=== PATIENT | female | born 1985 | race Caucasian/White ===

== ENCOUNTER 2018-07-23 10:15 | Outpatient (REF) | payer MEDICAID, SELFPAY ==
[2018-07-23 13:12] LABS: ALT 27 U/L (12-78); AST 10 U/L (15-37); Albumin 4.7 g/dL (3.4-5.0); Alkaline Phosphatase 63 U/L (46-116); Anion Gap 11.3 mmol/L (3-11); BUN 19 mg/dL (7-18); Bilirubin, Total 1.9 mg/dL (0.2-1.0); CO2 25.7 mmol/L (21.0-32.0); CREATININE 0.74 mg/dL (0.55-1.02); Calcium 9.4 mg/dL (8.5-10.1); Chloride 102 mmol/L (98-107); Glucose 78 mg/dL (70-100); Potassium 4.1 mmol/L (3.5-5.1); Sodium 139 mmol/L (136-145); TSH (W/Ref FT4) 1.25 uIU/mL (0.358-3.74)
== END 2018-07-23 10:35 ==
LOC: NCHCN 10:15
PROVIDERS: PCP Nurse Practitioner Family; Visit Provider Family Medicine
DX: F31.9 Bipolar disorder, unspecified (principal); B36.0 Pityriasis versicolor
CPT/HCPCS: 80053; 84443

== ENCOUNTER 2018-08-19 12:09 | Outpatient (REF) | payer MEDICAID, SELFPAY ==
[2018-08-19 12:31] LABS: Lithium 0.38 mmol/L (0.60-1.20)
== END 2018-08-19 12:29 ==
LOC: NCHCN 12:09
PROVIDERS: PCP Nurse Practitioner Family; Visit Provider Family Medicine
DX: F31.9 Bipolar disorder, unspecified (principal); Z51.81 Encounter for therapeutic drug level monitoring; Z79.899 Other long term (current) drug therapy
CPT/HCPCS: 80178

== ENCOUNTER 2018-10-01 15:18 | Emergency (ER) | payer MEDICAID, SELFPAY ==
[2018-10-01 15:31] VITALS: BP 114/78; PULSE 94; RESP 18; TEMP 36.6; O2SAT 98
--- NOTE | 2018-10-01 15:49 | ED.GENADUL_ITS ---
Discharge Plan Disposition Patient Disposition: HOME Condition: Stable Discharge Details Chief Complaint: AnimalBite Clinical Impression: Cat bite of forearm, Cat bite of hand Reason For Visit: cat bites Primary Care Provider: Cyndi Day ED Provider: Lorie Moore Home Meds and New Rx's Prescriptions: New amoxicillin-pot clavulanate [Augmentin] 875-125 mg tablet 1 tab PO BID 10 Days Qty: 20 RF: 0 Continue levonorgestrel [Mirena] 1 EACH intrauterine device 1 ea Intrauterine DAILY RF: 0 lithium carbonate 150 mg Capsule 100 mg PO TID RF: 0 Discharge Instructions Instructions: Animal Bite (ED) Additional Instructions: Take the antibiotics until finished. Alternate Tylenol and Motrin as needed and directed for pain. Keep your wounds clean dry and intact. Follow-up with your primary care doctor in 1 week for reevaluation. Return immediately to the emergency department with any worsening or new concerning symptoms. Stand Alone Forms: Work Release Discharge Data Discharge Physician: Lorie Moore Medical Decision Making 33yo F who presents with multiple cat bites and scratches to left forearm and hand. States cat up to date on shots. She returns last tetanus 2007. There are multiple superficial puncture wounds and lacerations to left forearm and hand. No palmar lacerations or puncture wounds noted. Neurovascularly intact. No signs of acute infection. Wounds irrigated well and dressed by nurse. We will give her a Boostrix, Tylenol, ibuprofen, check a urine and a left hand and forearm x-ray to rule out fracture versus foreign body. Pt refused test. States she is on mirena. 1645 -- xrays negative. Patient given dose of Augmentin here. Bite reported to health officer. Pt was instructed to make sure cat up to date on shots/rabies vaccine. Patient instructed on the importance of good wound care due to the high risk of infected cat bites. Prescription for Augmentin given. Patient was instructed to follow-up with a primary care doctor and to return here with any worsening symptoms of fever or red streaking. HPI General Mode of arrival: ambulatory . Date/Time Provider Initiated Documentation: 10/01/18 15:32 . Limitations to Documentation: no limitations . Information obtained by: patient . HPI Narrative: Patient is a 33-year-old female who presents with multiple cat bite and scratches to left forearm and hand sustained from her boyfriend's cat today. Patient is unsure of her tetanus status. Related Data Home Medications Medication Instructions Recorded Confirmed levonorgestrel [Mirena] 1 ea INTRAUTERINE DAILY 05/06/15 10/01/18 amoxicillin-pot clavulanate 1 tab PO BID 10 Days #20 tab 10/01/18 [Augmentin] lithium carbonate 100 mg PO TID 10/01/18 10/01/18 Previous Rx's Medication Instructions Recorded amoxicillin-pot clavulanate 1 tab PO BID 10 Days #20 tab 10/01/18 [Augmentin] Allergies Allergy/AdvReac Type Severity Reaction Status Date / Time selenium sulfide Allergy RASH Unverified 04/17/18 09:59 zolpidem [From Ambien] Allergy Unverified 10/01/18 15:35 General Stated Complaint: AnimalBite RAVEN: 3 Review of Systems Review of Systems All systems reviewed & are unremarkable except as noted in HPI and below Constitutional Reports as per HPI, Denies chills and Denies fever(s) Eyes Denies blurry vision ENT Denies dizziness, Denies sore throat and Denies throat swelling Cardiovascular Denies chest pain and Denies dyspnea Respiratory Denies dyspnea Gastrointestinal Denies abdominal pain, Denies diarrhea and Denies vomiting Genitourinary Denies hematuria and Denies dysuria Musculoskeletal Denies back pain and Denies numbness Integumentary/Breasts Denies lesions and Denies rash Neurologic Denies dizziness and Denies numbness Allergic/Immunologic Denies throat swelling PFSH Bipolar disorder Contraception (04/17/18) Cholecystectomy Medical History Bipolar disorder Contraception (04/17/18) Social History Smoking/Tobacco Use Status: Never Surgical History Cholecystectomy Social History Smoking/Tobacco Use Status: Never Exam Const General: cooperative, healthy appearing and no acute distress HENMT Head: normal to inspection Mouth: oral mucosae normal Eyes General: appearance normal, both eyes and all related structures Neck Neck: normal visual inspection Resp Effort & Inspection: normal respiratory effort and able to speak in complete sentences Cardio Rate: regular rate Skin General skin exam: no rashes or lesions noted Neuro General: alert, awake and oriented x3 Motor: muscle tone normal throughout Extrem General: normal to inspection and full ROM Other: Multiple puncture wounds and superficial linear lacerations noted to left dorsal and volar forearm as well as dorsal hand. No palmar lacerations noted. There is tenderness to palpation with very mild edema around wounds but no obvious erythema, induration, fluctuance or red streaking. Cap refill less than 2 seconds. Distal upper extremity pulses intact. Psych Appearance: grossly normal Affect: normal affect Course Vital Signs Temperature 97.9 F 10/01/18 15:31 Pulse 94 H 10/01/18 15:31 Respiratory Rate 18 10/01/18 15:31 Blood Pressure 114/78 10/01/18 15:31 Pulse Oximetry 98 10/01/18 15:31 Temperature 97.9 F 10/01/18 15:31 Temperature Source Temporal Artery Scan 10/01/18 15:31 Pulse 94 H 10/01/18 15:31 Respiratory Rate 18 10/01/18 15:31 Respiratory Effort 10/01/18 15:35 Blood Pressure 114/78 10/01/18 15:31 Pulse Oximetry 98 10/01/18 15:31 Oxygen Delivery Method Room Air 10/01/18 15:31 Oxygen Flow Rate 0 10/01/18 15:31
--- NOTE | 2018-10-01 15:56 | DI.RAD_ITS ---
SYMPTOM/DIAGNOSIS: S/P CAT BITE, R/O ACUTE FRACTURE VS FOREIGN BODY LEFT HAND: No fracture or dislocation is seen. IMPRESSION: Negative left hand.
--- NOTE | 2018-10-01 15:56 | DI.RAD_ITS ---
SYMPTOM/DIAGNOSIS: S/P CAT BITE, R/O FOREIGN BODY/FRACTURE LEFT FOREARM: No fracture or dislocation is seen. The wrist and elbow are unremarkable as visualized. IMPRESSION: Negative left forearm.
--- NOTE | 2018-10-01 16:27 | DI.VRAD_ITS ---
EXAM: XR Left Forearm, 2 Views EXAM DATE/TIME: 10/01/2018 4:19 PM CLINICAL HISTORY: 33 years old, female; Injury or trauma; Injury history: Cat bite; Initial encounter; Arm, lower; Left; Patient HX: S/P cat bite; Additional info: R/O foreign body/fracture TECHNIQUE: XR Left forearm 2 views. COMPARISON: CR LEFT ELBOW COMPLETE 07/15/2015 10:05 AM FINDINGS: Bones/joints: Normal. No fracture. Soft tissues: No radiopaque foreign body. IMPRESSION: No acute findings. Dictated and Authenticated by: Fazal Rivera MD. Ordering:LIANG ALEX MD
--- NOTE | 2018-10-01 16:34 | DI.VRAD_ITS ---
EXAM: XR Left Hand Complete, 3 or more Views EXAM DATE/TIME: 10/01/2018 3:59 PM CLINICAL HISTORY: 33 years old, female; Injury or trauma; Injury history: Cat bite; Initial encounter; Hand; Left; Patient HX: S/P cat bite; Additional info: R/O foreign body/fracture TECHNIQUE: XR Left hand 3 or more views. COMPARISON: No relevant prior studies available. FINDINGS: Bones/joints: Normal. No acute fracture. No dislocation. Soft tissues: No radiopaque foreign body. IMPRESSION: No acute findings. Dictated and Authenticated by: Fazal Rivera MD. Ordering:LIANG ALEX MD
[2018-10-01] MEDS: Ibuprofen 600 MG TAB PO (16:38)
[2018-10-01] MEDS: Acetaminophen 325 MG TAB 650 MG PO (16:38)
[2018-10-01] MEDS: Amoxicillin 875/Clav. 125 TAB PO (16:47)
--- NOTE | 2018-10-01 16:48 | NUR.NOTE ---
pt states that [facility] and declined to give specimen for UPT. Dr. Moore aware. Nursing Note:
--- NOTE | 2018-10-01 17:22 | NUR.NOTE ---
Addendum entered by Reba Hutchison 10/02/18 08:13: 10/02/2018 spoke with Alva and she is aware of the animal bite. Reba Hutchison. Original Note: spoke to health officer Shiloh Nieto to report animal bite [phone]. She will call back to get informtion. Patient refused to give animal drying equipment operator information. Alva advised to give patient information and she will reach out and explain the importance of the animal bite reporting.Nursing Note:
== END 2018-10-01 17:11 | disposition home or self-care (01) ==
LOC: ER 17:09
PROVIDERS: Emergency Provider Physician Assistant; PCP Nurse Practitioner Family
DX: S51.852A Open bite of left forearm, initial encounter (principal); S61.452A Open bite of left hand, initial encounter; W55.01XA Bitten by cat, initial encounter
CPT/HCPCS: 81025; 90471; 99284; 73090; 73130

== ENCOUNTER 2018-11-07 09:18 | Outpatient (REF) | payer MEDICAID, SELFPAY ==
[2018-11-07 12:53] LABS: Lithium 0.48 mmol/L (0.60-1.20)
[2018-11-07 13:14] LABS: ALT 20 U/L (12-78); AST 13 U/L (15-37); Albumin 4.5 g/dL (3.4-5.0); Alkaline Phosphatase 65 U/L (46-116); Anion Gap 8.2 mmol/L (3-11); BUN 15 mg/dL (7-18); Bilirubin, Total 1.8 mg/dL (0.2-1.0); CO2 29.8 mmol/L (21.0-32.0); CREATININE 0.73 mg/dL (0.55-1.02); Calcium 9.9 mg/dL (8.5-10.1); Chloride 104 mmol/L (98-107); Glucose 79 mg/dL (70-100); Potassium 3.9 mmol/L (3.5-5.1); Sodium 142 mmol/L (136-145); TSH (W/Ref FT4) 1.51 uIU/mL (0.358-3.74); Total Protein 8.1 g/dL (6.4-8.2)
== END 2018-11-07 09:38 ==
LOC: NCHCN 09:18
PROVIDERS: PCP Nurse Practitioner Family; Visit Provider Family Medicine
DX: F31.9 Bipolar disorder, unspecified (principal); R17 Unspecified jaundice; Z51.81 Encounter for therapeutic drug level monitoring; Z79.899 Other long term (current) drug therapy
CPT/HCPCS: 80053; 80178; 84443

== ENCOUNTER 2018-11-27 09:24 | Emergency (ER) | payer MEDICAID, SELFPAY ==
[2018-11-27 09:32] VITALS: BP 106/78; PULSE 82; RESP 18; TEMP 36.4; O2SAT 98
--- NOTE | 2018-11-27 09:53 | W.ED.GENAD ---
Discharge Plan Disposition Patient Disposition: HOME Condition: Stable Discharge Details Chief Complaint: RashLesion Clinical Impression: Shingles Primary Care Provider: Cyndi Day ED Provider: Rashard Nickerson Home Meds and New Rx's Prescriptions: New acyclovir 800 mg tablet 800 mg PO Q4H 7 Days Qty: 35 RF: 0 Continued Mirena 1 EACH intrauterine device 1 ea Intrauterine DAILY RF: 0 lithium carbonate 150 mg Capsule 100 mg PO TID RF: 0 sertraline 25 mg Tablet 25 mg PO BID RF: 0 Discharge Instructions Instructions: Shingles (ED) Additional Instructions: Return to the emergency department immediately for any new or significant worsening of symptoms such as associated fever chills, rapid progressive spread of rash, or any other concerns. Otherwise follow-up with your primary care provider as needed and take medication for the full 7 days. Referrals: Cyndi Day, DRYING OVEN ATTENDANT [Primary Care Provider] - (As needed for reassessment) Discharge Data Discharge Date/Time-TO BE ENTERED AT DEPARTURE: 11/27/18 10:15 Medical Decision Making Patient presenting to the emergency department for chief complaint of rash. She states that this started occurring yesterday and area of rash is burning and itching. Patient states that this occurred approximately 5 years ago in the same area which the rash then turned into water blisters . Rash does have a vesicular nature to it with erythema only noted on right flank. Only one small patch is identified at this time that is approximately 3 cm in diameter. Physical exam is otherwise unremarkable with no systemic symptoms. Patient's does have history of leukemia and just stopped treatment and patient also states a young infant at home. Given the secondary exposure concerns while shingles is not clearly identified I do feel treating for shingles at this time is warranted given low immunity status of other household members. Patient was encouraged to take medication until fully complete and return for new or worsening symptoms. After discussion of diagnosis and plan of care patient has no further needs, questions, or concerns and states clear understanding to return to the emergency department for any worsening symptoms. Patient denies any chance of and denies test. Did inform patient of potential risk with medications during but acyclovir is class B which I feel is safe to prescribe it without testing at this time. HPI General Mode of arrival: ambulatory. Date/Time Provider Initiated Documentation: 11/27/18 09:33. Limitations to Documentation: no limitations. Information obtained by: patient, family and RN notes reviewed. History of Present Illness 33 year old F presents to the emergency department with the chief complaint of rash, described as moderate, with intensity rated at 8. Quality is described as burning (itching), and is localized to the right (flank). Patient started experiencing this day(s) (2) and it has been constant. No relieving factors improve symptom(s), Other factors that worsen symptoms (recent cold) . Patient notes no other symptoms.. Patient did receive the following treatments prior to arrival, none Related Data Home Medications Medication Instructions Recorded Confirmed Mirena 1 ea INTRAUTERINE DAILY 05/06/15 11/27/18 lithium carbonate 100 mg PO TID 10/01/18 11/27/18 acyclovir 800 mg PO Q4H 7 Days #35 tab 11/27/18 sertraline 25 mg PO BID 11/27/18 11/27/18 Previous Rx's Medication Instructions Recorded acyclovir 800 mg PO Q4H 7 Days #35 tab 11/27/18 Allergies Allergy/AdvReac Type Severity Reaction Status Date / Time selenium sulfide Allergy RASH Unverified 11/27/18 09:38 zolpidem [From Ambien] Allergy Unverified 11/27/18 09:38 General Stated Complaint: RashLesion RAVEN: 4 Review of Systems Constitutional Denies chills, Reports fatigue and Reports fever(s) Cardiovascular Denies chest pain Respiratory Denies chest congestion and Denies cough Gastrointestinal Reports diarrhea and Denies vomiting Musculoskeletal Denies joint swelling Integumentary/Breasts Reports as per HPI and Reports rash Endocrine Reports fatigue PFSH Medical History Bipolar disorder Contraception (04/17/18) Surgical History Cholecystectomy Social History Smoking/Tobacco Use Status: Never Exam Const General: cooperative, healthy appearing, comfortable and no acute distress Resp Effort & Inspection: normal respiratory effort and able to speak in complete sentences Skin General skin exam: erythema (Patient has small patch of erythematous vesicles to right flank) Neuro General: alert, awake and oriented x3 Course Vital Signs Temperature 36.4 C L 11/27/18 09:32 Pulse 82 11/27/18 09:32 Respiratory Rate 18 11/27/18 09:32 Blood Pressure 106/78 11/27/18 09:32 Pulse Oximetry 98 11/27/18 09:32 Temperature 36.4 C L 11/27/18 09:32 Temperature Source Temporal Artery Scan 11/27/18 09:32 Pulse 82 11/27/18 09:32 Respiratory Rate 18 11/27/18 09:32 Respiratory Effort Non-Labored 11/27/18 09:37 Blood Pressure 106/78 11/27/18 09:32 Blood Pressure Position Sitting 11/27/18 09:32 Pulse Oximetry 98 11/27/18 09:32 Oxygen Delivery Method Room Air 11/27/18 09:32 Oxygen Flow Rate 0 11/27/18 09:32 Pain Level 8 11/27/18 09:32
== END 2018-11-27 10:15 | disposition home or self-care (01) ==
PROVIDERS: Emergency Provider Nurse Practitioner Family; PCP Nurse Practitioner Family
DX: B02.9 Zoster without complications (principal)
CPT/HCPCS: 99283

== ENCOUNTER 2019-01-22 08:24 | Outpatient (REF) | payer MEDICAID, SELFPAY ==
[2019-01-22 15:05] LABS: Lithium 0.31 mmol/L (0.60-1.20)
[2019-01-22 21:47] LABS: Bilirubin, Total 0.8 mg/dL (0.2-1.0)
== END 2019-01-22 08:44 ==
LOC: NCHCN 08:24
PROVIDERS: PCP Nurse Practitioner Family; Visit Provider Family Medicine
DX: F31.9 Bipolar disorder, unspecified (principal); Z51.81 Encounter for therapeutic drug level monitoring; R17 Unspecified jaundice
CPT/HCPCS: 80178; 82247

== ENCOUNTER 2019-01-30 07:49 | Outpatient (REF) | payer MEDICAID, SELFPAY ==
[2019-01-30 12:23] LABS: Lithium 0.81 mmol/L (0.60-1.20)
== END 2019-01-30 08:09 ==
LOC: NCHCN 07:49
PROVIDERS: PCP Nurse Practitioner Family; Visit Provider Family Medicine
DX: F31.9 Bipolar disorder, unspecified (principal); Z79.899 Other long term (current) drug therapy; Z51.81 Encounter for therapeutic drug level monitoring
CPT/HCPCS: 80178

== ENCOUNTER 2019-02-02 14:21 | Emergency (ER) | payer MEDICAID, SELFPAY ==
[2019-02-02 14:28] VITALS: BP 112/66; PULSE 78; RESP 12; TEMP 37.1; O2SAT 99
--- NOTE | 2019-02-02 14:34 | W.ED.GENAD ---
Discharge Plan Disposition Patient Disposition: HOME Condition: Stable Discharge Details Chief Complaint: Nausea/Vomit/Diar Clinical Impression: Nausea & vomiting Primary Care Provider: Cyndi Day ED Provider: Rashawn Heart Home Meds and New Rx's Prescriptions: New ondansetron 4 mg tablet,disintegrating 4 mg PO QID PRN (Reason: nausea and vomiting) Qty: 30 RF: 0 Continued Mirena 1 EACH intrauterine device 1 ea Intrauterine DAILY RF: 0 lithium carbonate 150 mg Capsule 100 mg PO TID RF: 0 sertraline 25 mg Tablet 25 mg PO BID RF: 0 Discharge Instructions Instructions: Acute Nausea and Vomiting (ED) Additional Instructions: you can take 1000mg tylenol and 600mg ibuprofen every 6 hours for pain as needed follow up with your primary care provider within a week if symptoms continue return to the emergency department if pain significantly worsens, you develop severe abdominal pain or have persistent vomit despite the ondansetron Medical Decision Making Pt states that around 5pm last night she began to have nausea then subsequently n/v and hasn't been able to keep anything down since. She had a headache earlier but denies any pain now. She only has nasuea and states she feels weak from all the n/v she has. Denies any abdominal pain. HAs no focal neuro findings, CN II-XII are intact and no meninigismus so doubt box coverer hand infection and she has a hx of migraines and states the headache she had earlier was not the worse of her life and slowly worsened so doubt sah at this time, do not feel imaging of the head indicated. No abdominal tenderness or distention to suggest sbo or other surgical pathology or pancreatitis at this time. Will tx with IVF and antiemetics and monitor pt remains stable, poc hcg negative. She is tolerating PO and has no headache and still no abdominal pain. Suspect gastroenteritis but advised if she worsens or develops abdominal pain to return to the emergency department for reevaluation Differential Diagnosis viral illness, gastroenteritis, food illness HPI General Mode of arrival: ambulatory. Date/Time Provider Initiated Documentation: 02/02/19 14:24. Limitations to Documentation: no limitations. Information obtained by: patient. History of Present Illness 33 year old F presents to the emergency department with the chief complaint of nausea and vomit, described as moderate, Patient reports no radiation. Patient started experiencing this day(s) (1) and it has been constant. No relieving factors improve symptom(s), No exacerbating factors reported . Patient notes other (headache). Patient did receive the following treatments prior to arrival, none Related Data Home Medications Medication Instructions Recorded Confirmed Mirena 1 ea INTRAUTERINE DAILY 05/06/15 02/02/19 lithium carbonate 100 mg PO TID 10/01/18 02/02/19 sertraline 25 mg PO BID 11/27/18 02/02/19 ondansetron 4 mg PO QID PRN #30 tab 02/02/19 Previous Rx's Medication Instructions Recorded ondansetron 4 mg PO QID PRN #30 tab 02/02/19 Allergies Allergy/AdvReac Type Severity Reaction Status Date / Time selenium sulfide Allergy RASH Unverified 02/02/19 14:34 zolpidem [From Ambien] Allergy Unverified 02/02/19 14:34 General Stated Complaint: Nausea/Vomit/Diar RAVEN: 3 Review of Systems Review of Systems All systems reviewed & are unremarkable except as noted in HPI and below Constitutional Denies chills and Denies fever(s) ENT Denies change in voice Cardiovascular Denies chest pain and Denies dyspnea Respiratory Denies cough and Denies dyspnea Gastrointestinal Denies abdominal pain Musculoskeletal Denies joint swelling Integumentary/Breasts Denies rash [facility] Medical History Bipolar disorder Contraception (04/17/18) Surgical History Cholecystectomy Social History Smoking/Tobacco Use Status: Never Drug use: Never Do you feel safe in your relationship?: Yes Exam Const General: no acute distress Orientation: alert HENMT Head: normal to inspection Ears: external ears normal General nose exam: external nose normal Mouth: moist mucous membranes Eyes General: appearance normal, both eyes and all related structures Neck Neck: normal visual inspection Resp Effort & Inspection: normal respiratory effort and able to speak in complete sentences Cardio Rate: regular rate GI Palpation: soft Skin General skin exam: no rashes or lesions noted Neuro General: alert and oriented x3 Extrem General: normal to inspection Psych Mental Status: mental status grossly normal Course Vital Signs Temperature 37.1 C 02/02/19 14:28 Pulse 78 02/02/19 14:28 Respiratory Rate 12 02/02/19 14:28 Blood Pressure 112/66 02/02/19 14:28 Pulse Oximetry 99 02/02/19 14:28 Temperature 37.1 C 02/02/19 14:28 Temperature Source Skin 02/02/19 14:28 Pulse 78 02/02/19 14:28 Respiratory Rate 12 02/02/19 14:28 Blood Pressure 112/66 02/02/19 14:28 Blood Pressure Position Sitting 02/02/19 14:28 Pulse Oximetry 99 02/02/19 14:28 Oxygen Delivery Method Room Air 02/02/19 14:28 Oxygen Flow Rate 0 02/02/19 14:28 Pain Level 3 02/02/19 14:28
--- NOTE | 2019-02-02 14:37 | ED.GENADUL_ITS ---
Discharge Plan Disposition Patient Disposition: HOME Condition: Stable Discharge Details Chief Complaint: Nausea/Vomit/Diar Clinical Impression: Nausea & vomiting Primary Care Provider: Cyndi Day ED Provider: Rashawn Heart Home Meds and New Rx's Prescriptions: New ondansetron 4 mg tablet,disintegrating 4 mg PO QID PRN (Reason: nausea and vomiting) Qty: 30 RF: 0 Continued Mirena 1 EACH intrauterine device 1 ea Intrauterine DAILY RF: 0 lithium carbonate 150 mg Capsule 100 mg PO TID RF: 0 sertraline 25 mg Tablet 25 mg PO BID RF: 0 Discharge Instructions Instructions: Acute Nausea and Vomiting (ED) Additional Instructions: you can take 1000mg tylenol and 600mg ibuprofen every 6 hours for pain as needed follow up with your primary care provider within a week if symptoms continue return to the emergency department if pain significantly worsens, you develop severe abdominal pain or have persistent vomit despite the ondansetron Medical Decision Making Pt states that around 5pm last night she began to have nausea then subsequently n/v and hasn't been able to keep anything down since. She had a headache earlier but denies any pain now. She only has nasuea and states she feels weak from all the n/v she has. Denies any abdominal pain. HAs no focal neuro findings, CN II- XII are intact and no meninigismus so doubt back pad inspector infection and she has a hx of migraines and states the headache she had earlier was not the worse of her life and slowly worsened so doubt sah at this time, do not feel imaging of the head indicated. No abdominal tenderness or distention to suggest sbo or other surgical pathology or pancreatitis at this time. Will tx with IVF and antiemetics and monitor pt remains stable, poc hcg negative. She is tolerating PO and has no headache and still no abdominal pain. Suspect gastroenteritis but advised if she worsens or develops abdominal pain to return to the emergency department for reevaluation Differential Diagnosis viral illness, gastroenteritis, food illness HPI General Mode of arrival: ambulatory . Date/Time Provider Initiated Documentation: 02/02/19 14:24 . Limitations to Documentation: no limitations . Information obtained by: patient . History of Present Illness 33 year old F presents to the emergency department with the chief complaint of nausea and vomit, described as moderate, Patient reports no radiation. Patient started experiencing this day(s) (1) and it has been constant. No relieving factors improve symptom(s), No exacerbating factors reported . Patient notes other (headache). Patient did receive the following treatments prior to arrival, none Related Data Home Medications Medication Instructions Recorded Confirmed Mirena 1 ea INTRAUTERINE DAILY 05/06/15 02/02/19 lithium carbonate 100 mg PO TID 10/01/18 02/02/19 sertraline 25 mg PO BID 11/27/18 02/02/19 ondansetron 4 mg PO QID PRN #30 tab 02/02/19 Previous Rx's Medication Instructions Recorded ondansetron 4 mg PO QID PRN #30 tab 02/02/19 Allergies Allergy/AdvReac Type Severity Reaction Status Date / Time selenium sulfide Allergy RASH Unverified 02/02/19 14:34 zolpidem [From Ambien] Allergy Unverified 02/02/19 14:34 General Stated Complaint: Nausea/Vomit/Diar RAVEN: 3 Review of Systems Review of Systems All systems reviewed & are unremarkable except as noted in HPI and below Constitutional Denies chills and Denies fever(s) ENT Denies change in voice Cardiovascular Denies chest pain and Denies dyspnea Respiratory Denies cough and Denies dyspnea Gastrointestinal Denies abdominal pain Musculoskeletal Denies joint swelling Integumentary/Breasts Denies rash [facility] Medical History Bipolar disorder Contraception (04/17/18) Surgical History Cholecystectomy Social History Smoking/Tobacco Use Status: Never Drug use: Never Do you feel safe in your relationship?: Yes Exam Const General: no acute distress Orientation: alert HENMT Head: normal to inspection Ears: external ears normal General nose exam: external nose normal Mouth: moist mucous membranes Eyes General: appearance normal, both eyes and all related structures Neck Neck: normal visual inspection Resp Effort & Inspection: normal respiratory effort and able to speak in complete sentences Cardio Rate: regular rate GI Palpation: soft Skin General skin exam: no rashes or lesions noted Neuro General: alert and oriented x3 Extrem General: normal to inspection Psych Mental Status: mental status grossly normal Course Vital Signs Temperature 37.1 C 02/02/19 14:28 Pulse 78 02/02/19 14:28 Respiratory Rate 12 02/02/19 14:28 Blood Pressure 112/66 02/02/19 14:28 Pulse Oximetry 99 02/02/19 14:28 Temperature 37.1 C 02/02/19 14:28 Temperature Source Skin 02/02/19 14:28 Pulse 78 02/02/19 14:28 Respiratory Rate 12 02/02/19 14:28 Blood Pressure 112/66 02/02/19 14:28 Blood Pressure Position Sitting 02/02/19 14:28 Pulse Oximetry 99 02/02/19 14:28 Oxygen Delivery Method Room Air 02/02/19 14:28 Oxygen Flow Rate 0 02/02/19 14:28 Pain Level 3 02/02/19 14:28
[2019-02-02] MEDS: Normal Saline 1,000 ML 1000 ML IV (14:40)
[2019-02-02] MEDS: Normal Saline Flush 10 ML SYR IVP (14:40)
[2019-02-02] MEDS: Ondansetron 4 MG/2 ML VIAL IVP (14:48)
[2019-02-02] MEDS: Ketorolac 15 MG/ML VIAL IVP (14:51)
[2019-02-02 15:47] VITALS: BP 102/60; PULSE 71; RESP 14; TEMP 37; O2SAT 99
== END 2019-02-02 15:56 | disposition home or self-care (01) ==
PROVIDERS: Emergency Provider Emergency Medicine; PCP Nurse Practitioner Family
DX: R11.2 Nausea with vomiting, unspecified (principal)
CPT/HCPCS: 81025; 96361; 96374; 96375; 99284; J1885; J2405

== ENCOUNTER 2019-05-05 14:26 | Outpatient (REF) | payer MEDICAID, SELFPAY ==
[2019-05-05 18:56] LABS: HCT 38.4 % (36.0-46.0); HGB 12.7 g/dL (12.0-15.5); Mean Corp. HGB Concentration 33.1 g/dL (32.0-36.0); Mean Corpuscular Hemoglobin 29.5 pg (27.0-33.0); Mean Corpuscular Volume 89.3 fL (80-95); Mean Platelet Volume 9.8 fL (8.0-11.0); Platelet Count 334 x1000/uL (130-400); RBC Distribution Width 12.9 % (11.7-14.6); White Blood Cell Count 6.35 k/cumm (4.4-10.8)
[2019-05-05 19:20] LABS: Anion Gap 9.6 mmol/L (3-11); BUN 17 mg/dL (7-18); CO2 27.4 mmol/L (21.0-32.0); CREATININE 0.65 mg/dL (0.55-1.02); Calcium 9.3 mg/dL (8.5-10.1); Calculated LDL 133 mg/dL; Chloride 105 mmol/L (98-107); Cholesterol 182 mg/dL (50-200); Glucose 85 mg/dL (70-100); HDL Cholesterol 43 mg/dL (40-60); Potassium 3.8 mmol/L (3.5-5.1); Sodium 142 mmol/L (136-145); TSH (W/Ref FT4) 1.67 uIU/mL (0.358-3.74); Triglyceride 34 mg/dL (30-150)
[2019-05-05 19:33] LABS: Hemoglobin A1C 5.3 % (4.5-6.2); Lithium 0.36 mmol/L (0.60-1.20)
== END 2019-05-05 14:46 ==
LOC: NCHCN 14:26
PROVIDERS: Visit Provider Family Medicine
DX: F31.9 Bipolar disorder, unspecified (principal); Z51.81 Encounter for therapeutic drug level monitoring; Z79.899 Other long term (current) drug therapy
CPT/HCPCS: 80048; 80061; 83721; 85027; 80178; 83036; 84443

== ENCOUNTER 2019-08-03 14:31 | Emergency (ER) | payer MEDICAID, SELFPAY ==
[2019-08-03 14:33] VITALS: BP 119/74; PULSE 86; RESP 16; TEMP 36.7; O2SAT 100
--- NOTE | 2019-08-03 15:31 | DI.RAD_ITS ---
EXAM: XR LUMBAR SPINE COMPLETE INDICATION: pain. COMPARISON: No exams were available for comparison TECHNIQUE: 2D digital imaging was performed. FINDINGS: Five views were obtained. Note is made of an IUD in the pelvic midline. There are vascular clips in the right upper quadrant consistent previous cholecystectomy. Intervertebral disc spaces are well m aintained. No evidence of fracture. No spondylolysis or spondylolisthesis. IMPRESSION: Negative examination of the lumbar spine.
--- NOTE | 2019-08-03 15:35 | ED.GENADUL_ITS ---
Discharge Plan Disposition Patient Disposition: HOME Condition: Improving Discharge Details Chief Complaint: Nk/Back Pain Clinical Impression: Back pain, Lumbago Primary Care Provider: None,None ED Provider: Stephen Burrell Home Meds and New Rx's Prescriptions: New methylprednisolone [Medrol (Toni)] 4 mg tablets,dose pack See Rx Instructions .ROUTE .COMPLEX Qty: 21 RF: 0 cyclobenzaprine 10 mg tablet 10 mg PO TID PRN (Reason: muscle spasm) Qty: 10 RF: 0 No Action Mirena 1 EACH intrauterine device 1 ea Intrauterine DAILY RF: 0 sertraline 25 mg Tablet 25 mg PO BID RF: 0 Latuda 20 mg Tablet 20 mg PO DAILY RF: 0 Discharge Instructions Instructions: Back Pain (ED) Additional Instructions: Avoid heavy lifting. Rest activities as tolerated. Use muscle relaxant as prescribed. Do not drive, drink more work while taking this medication this will cause drowsiness. Use Medrol Dosepak as prescribed. Follow-up with your primary care doctor for reevaluation and possibly more advanced imaging. Follow-up with outpatient physical therapy for your back pain Return for any alarming symptoms, worsening or concerns sooner if needed Stand Alone Forms: Work Release Referrals: Troy Dasilva, PT [PHYSICAL THERAPIST] - Discharge Data Discharge Date/Time-TO BE ENTERED AT DEPARTURE: 08/03/19 17:28 Medical Decision Making <WONG Naylor - Last Filed: 08/04/19 16:36> Is a 34-year-old woman who presents to the ER for complaints of back pain which have began in the last month associated with mild radiation to the left proximal posterior leg associated with minimal numbness intermittently especially with laying flat. Patient denies any red flags associated. No incontinence of urine or stool. No weakness or difficulty ambulating. Patient reports the last 3 days pain in the low back has been escalating. Patient tried Tylenol ice and heat with mild improvement of symptoms temporarily. Patient is concerned with possible injury to her back given persistence of her symptoms. Will order an x- ray. On exam patient is neurovascularly intact without any obvious cauda equina symptoms or sign of neurosurgical emergency today. Discussed plan of care with patient. Plan of care is to initiate physical therapy, muscle relaxants and prednisone and follow-up with PCP. <Stephen Burrell MD - Last Filed: 08/03/19 17:12> Received signout from Ms. Kessler. Please see her note regarding details of initial presentation, plan of care. Patient's x-ray unremarkable is improving. Will discharge according to previous plan with muscle relaxant and steroid with follow-up in physical therapy. HPI <WONG Naylor - Last Filed: 08/04/19 16:36> General Date/Time Provider Initiated Documentation: 08/03/19 15:11 . HPI Narrative: Patient presents for complaints of lower back pain. 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 Patient reports since beginning her job 1 month ago she has had back pain in the low back worse on the left side with mild radiation to the buttock area just proximal to the knee posteriorly. Patient reports minimal relief with Tylenol [id number]. Pain returns entirely when she is not using Tylenol. Patient tried ice and heat with minimal improvement. Patient denies numbness, tingling or weakness associated. No fevers or chills. Denies abdominal pain. No urinary complaints. Denies fever or chills. No other concerns or complaints at this time. Denies history of IV drug use Related Data Home Medications Medication Instructions Recorded Confirmed Mirena 1 ea INTRAUTERINE DAILY 05/06/15 08/03/19 sertraline 25 mg PO BID 11/27/18 08/03/19 cyclobenzaprine 10 mg PO TID PRN #10 tab 08/03/19 lurasidone [Latuda] 20 mg PO DAILY 08/03/19 08/03/19 methylprednisolone [Medrol (Toni)] See Rx Instructions .ROUTE 08/03/19 .COMPLEX #21 dose pk Previous Rx's Medication Instructions Recorded cyclobenzaprine 10 mg PO TID PRN #10 tab 08/03/19 methylprednisolone [Medrol (Toni)] See Rx Instructions .ROUTE 08/03/19 .COMPLEX #21 dose pk Allergies Allergy/AdvReac Type Severity Reaction Status Date / Time zolpidem [From Ambien] AdvReac Intermediate sedative Unverified 08/03/19 14:38 selenium [From Selenimin] AdvReac Mild Skin Rash Unverified 08/03/19 14:38 General Stated Complaint: Nk/Back Pain RAVEN: 3 Review of Systems <WONG Naylor - Last Filed: 08/04/19 16:36> Review of Systems ROS Unobtainable: All systems reviewed & are unremarkable except as noted in HPI and below Constitutional Constitutional: Denies chills, Denies fever(s) and Denies weakness ENT Ears, Nose, Mouth, and Throat: Denies neck pain Gastrointestinal Gastrointestinal: Denies abdominal pain, Denies nausea and Denies vomiting Genitourinary Genitourinary: Denies hematuria, Denies dysuria and Denies urinary urgency Musculoskeletal Musculoskeletal: Reports back pain, Denies neck pain, Reports numbness and Denies tingling Neurologic Neurologic: Reports numbness, Denies tingling and Denies weakness PFSH <WONG Naylor - Last Filed: 08/04/19 16:36> Medical History Bipolar disorder longstanding. has used variety of meds. not on disability. looking for provider to treat her sx. Contraception (04/17/18) desires BTL. Currently Mirena IUD. Surgical History Cholecystectomy 2013 Social History Smoking/Tobacco Use Status: Never Alcohol Intake: never Drug use: Never Substance use type: does not use Do you feel safe at home: Yes Do you feel safe in your relationship?: Yes Exam <WONG Naylor - Last Filed: 08/04/19 16:36> Narrative Exam Narrative: CONST: Healthy appearing patient, in no acute distress. Well hydrated. Alert and alert. HENMT: Head nomocephalic, normal to inspection. Atraumatic. Hearing grossly normal. EYES: General normal appearance. Alignment normal. Eyelids normal. Conjunctiva normal. NECK: Normal visual inspection. FROM. Trachea midline. No Midline tenderness. Back; no thoracic back pain with palpation. Mild lumbar pain with palpation in the midline. Moderate pain with palpation of the left lower back along the paraspinal musculature. Mild SI joint tenderness. No tenderness in the buttocks. Mild pain with straight leg raise on the left. MUSCULOSKELETAL: Normal Gait. FROM of all extremities. Sensation equal bilaterally. No foot drop. Distal neurovascularly intact SKIN: Normal. Dry. No rashes. NEURO: Alert and awake. Speech clear. PSYCH: Normal affect. Cooperative. Course <WONG Naylor - Last Filed: 08/04/19 16:36> Vital Signs Vital signs: Vital Signs Temperature 36.7 C 08/03/19 14:33 Pulse 86 08/03/19 14:33 Respiratory Rate 16 08/03/19 14:33 Blood Pressure 119/74 08/03/19 14:33 Pulse Oximetry 100 08/03/19 14:33 Temperature 36.7 C 08/03/19 14:33 Temperature Source Skin 08/03/19 14:33 Pulse 86 08/03/19 14:33 Respiratory Rate 16 08/03/19 14:33 Respiratory Effort Non-Labored 08/03/19 14:50 Blood Pressure 119/74 08/03/19 14:33 Blood Pressure Position Sitting 08/03/19 14:33 Pulse Oximetry 100 08/03/19 14:33 Oxygen Delivery Method Room Air 08/03/19 14:33 Oxygen Flow Rate 0 08/03/19 14:33 Pain Level 10 08/03/19 14:33 Sign Out <WONG Naylor - Last Filed: 08/04/19 16:36> Sign Out Data: Sign Out Comment: Patient signed out pending x-ray evaluation of her L-spine with plan of care in place Last updated by Ronda Hernandez PA at 08/03/19 16:20
[2019-08-03 16:11] LABS: Bilirubin Negative (Negative); Blood Negative (Negative); Clarity Clear (Clear); Glucose Negative (Negative); Ketones Negative (Negative); Leukocyte Esterase Negative (Negative); Nitrite Negative (Negative); Specific Gravity 1.025 (1.005-1.025); Urobilinogen 0.2 EU/dL (Up TO 0.2); pH 5.5 (5-8)
[2019-08-03] MEDS: Lidocaine 5% Patch 1 PATCH TP (17:21)
[2019-08-03 17:27] VITALS: BP 119/74; PULSE 86; RESP 16; TEMP 36.7; O2SAT 100
== END 2019-08-03 17:28 | disposition home or self-care (01) ==
PROVIDERS: Physician Assistant; Emergency Provider Emergency Medicine
DX: M54.5 Low back pain (principal)
CPT/HCPCS: 81025; 99283; 72110; 81003

== ENCOUNTER 2020-03-28 11:33 | Outpatient (REF) | payer MEDICAID, SELFPAY ==
[2020-03-28 21:04] LABS: HCT 37.8 % (36.0-46.0); HGB 12.7 g/dL (12.0-15.5); Mean Corp. HGB Concentration 33.6 g/dL (32.0-36.0); Mean Corpuscular Volume 89.2 fL (80-95); Mean Platelet Volume 9.8 fL (8.0-11.0); Platelet Count 350 x1000/uL (130-400); RBC 4.24 m/cumm (4.00-5.20); RBC Distribution Width 12.3 % (11.7-14.6); White Blood Cell Count 4.54 k/cumm (4.4-10.8)
[2020-03-28 21:33] LABS: Vitamin D 25 Total 18.4 ng/ml (30-100)
[2020-03-28 21:52] LABS: ALT 37 U/L (14-59); AST 19 U/L (15-37); Albumin 4.3 g/dL (3.4-5.0); Alkaline Phosphatase 56 U/L (46-116); Anion Gap 7.9 mmol/L (3-11); BUN 18 mg/dL (7-18); Bilirubin, Total 1.8 mg/dL (0.2-1.0); CO2 28.1 mmol/L (21.0-32.0); CREATININE 0.74 mg/dL (0.55-1.02); Calcium 9.1 mg/dL (8.5-10.1); Chloride 103 mmol/L (98-107); Glucose 78 mg/dL (74-106); Potassium 3.8 mmol/L (3.5-5.1); Sodium 139 mmol/L (136-145); TSH (W/Ref FT4) 0.82 uIU/mL (0.36-3.74); Total Protein 7.4 g/dL (6.4-8.2); Vitamin B12 301 pg/mL (193-986)
== END 2020-03-28 11:53 ==
LOC: NCHCN 11:33
PROVIDERS: Visit Provider Nurse Practitioner Family
DX: F31.9 Bipolar disorder, unspecified (principal)
CPT/HCPCS: 80053; 82306; 85027; 82607; 84443

== ENCOUNTER 2020-08-03 16:41 | Outpatient (REF) | payer MEDICAID, SELFPAY ==
[2020-08-05 21:19] LABS: Patient Race White; SARS-CoV-2 RNA Undetected (Undetected); SARS-CoV-2 Specimen Source Nasopharynx
== END 2020-08-03 17:01 ==
LOC: NCHCN 16:41
PROVIDERS: Visit Provider Nurse Practitioner Family
DX: B34.9 Viral infection, unspecified (principal)
CPT/HCPCS: U0003

== ENCOUNTER 2020-12-07 13:30 | Outpatient (REF) | payer MEDICAID, SELFPAY ==
[2020-12-07 14:17] LABS: Vitamin B12 282 pg/mL (193-986)
[2020-12-08 04:46] LABS: Vitamin D 25 Total 23.8 ng/ml (30-100)
== END 2020-12-07 13:31 | disposition home or self-care (01) ==
LOC: NCHCN 13:30
PROVIDERS: PCP Nurse Practitioner Psychiatric/Mental Health; Visit Provider Nurse Practitioner Psychiatric/Mental Health
DX: F31.62 Bipolar disorder, current episode mixed, moderate (principal); Z79.899 Other long term (current) drug therapy
CPT/HCPCS: 82306; 82607

== ENCOUNTER 2023-02-07 16:59 | Outpatient (REF) | payer MEDICAID, SELFPAY ==
--- NOTE | 2023-02-07 16:40 | PAPFT_PTH ---
PATIENT: [place]ne [place] LOC: [facility] U#:[id number] AGE/SX: 37/F ROOM: RE02/07/[address]: Hetal Villegas : 1985 BED: DIS: 02/07/2023 SPEC #: [id number] RECD: 02/08/23 13:10 STATUS: STACEY REBlas #: [id number] MARIANN: 02/07/23 16:[address]: Hetal Villegas DEPT: [facility] Cytology RECD BY: Juliet Trevino ENTERED: 02/08/23 13:10 SP TYPE: PAPFT OTHR DR: Cortney Rivera Tissues: 1 - CX/ENDOCX FOR PAP SMEARS Procedures: PAP THIN PREP/[facility] Screening HPV DNA PROBE Comments: [id number] (CHLAMYDIA/GC)
[2023-02-07 21:20] LABS: HCT 37.3 % (36.0-46.0); HGB 12.8 g/dL (11.2-15.7); MCH 30.1 pg (27.0-33.0); MCHC 34.3 % (32.0-36.0); MCV 88 fL (80-95); MPV 9.2 fL (8.0-11.0); Platelet Count 329 10^3/uL (130-400); RBC 4.25 10^6/uL (3.93-5.22); RDW 11.8 % (11.7-14.6); RDW-SD 38.1 fL; WBC 5.93 10^3/uL (4.4-10.8)
[2023-02-07 21:31] LABS: Anion Gap 5.5 mmol/L (3-11); BUN 24 mg/dL (7-18); CO2 26.5 mmol/L (21.0-32.0); CREATININE 0.7 mg/dL (0.55-1.02); Calcium 9.3 mg/dL (8.5-10.1); Chloride 105 mmol/L (98-107); Estimated GFR 113.46 (mL/min/1.73m2); Glucose 99 mg/dL (74-106); Potassium 3.7 mmol/L (3.5-5.1); Sodium 137 mmol/L (136-145)
[2023-02-07 21:49] LABS: Hemoglobin A1C 5.5 % (<5.7)
[2023-02-10 14:28] LABS: Chlamydia Result Negative (Negative); GC Result Negative (Negative)
== END 2023-02-07 17:00 | disposition home or self-care (01) ==
LOC: NCHCN 16:59
PROVIDERS: PCP Nurse Practitioner Psychiatric/Mental Health; Visit Provider Family Medicine
DX: N93.9 Abnormal uterine and vaginal bleeding, unspecified (principal); F31.62 Bipolar disorder, current episode mixed, moderate; Z13.1 Encounter for screening for diabetes mellitus; Z12.4 Encounter for screening for malignant neoplasm of cervix; Z11.3 Encounter for screening for infections with a predominantly sexual mode of transmission; Z11.51 Encounter for screening for human papillomavirus (HPV)
CPT/HCPCS: 80048; 85027; 87491; 87591; 88142; 83036; 87624